=== PATIENT | male | born 1960 | race Caucasian/White ===

== ENCOUNTER 2017-09-11 16:43 | Outpatient (CLI) | payer OTHER ==
--- NOTE | 2017-09-12 00:22 | MRI Report ---
EXAM: MRI LUMBAR SPINE WITHOUT CONTRAST EXAM DATE: 09/11/2017 05:26 PM. CLINICAL HISTORY: Lumbago with right-sided sciatica. COMPARISON: None. TECHNIQUE: Multiplanar, multisequence T1-weighted and fluid-sensitive sequences of the lumbar spine f rom T11 to S1 without contrast. Other: None. FINDINGS: Spinal Cord: The conus terminates at L1-L2. The conus medullaris is unremarkable. Alignment: Retrolisthesis at L4-L5 measures 4 mm and at L5-S1 measures 5 mm. Bone Marrow: Five [id number] lumbar vertebral bodies are assumed. Moderate type I Modic endplate changes are present at L4-L5. Disk Levels/Facets: T11-T12: Unremarkable on sagittal images. T12-l1: Unremarkable on sagittal images. L1-L2: There is mild left foraminal narrowing due to facet arthropathy. The spinal canal and right fo ramen are patent. L2-L3: There is mild left foraminal narrowing due to facet arthropathy and a left foraminal protrusio n. The spinal canal and right foramen are patent. L3-L4: A disk bulge with ligamentum flavum infolding and facet arthropathy result in mild spinal nikky l stenosis. There is mild bilateral foraminal narrowing. L4-L5: A disk bulge is present with a superimposed central and right paracentral mildly inferiorly mi grating extrusion. Additionally, there is a sequestered disk fragment in the right lateral recess imp inging the descending right L5 nerve root and causing moderate spinal canal stenosis. Facet arthropat hy is also present resulting in severe right and moderate left foraminal narrowing. L5-S1: A disk bulge is present with a superimposed central protrusion. There is bilateral facet arthr opathy. This results in moderate bilateral foraminal narrowing without spinal canal stenosis. Musculature: There is mild diffuse fatty atrophy of the posterior paraspinal muscles without intramus cular edema. Other: The partially visualized retroperitoneum is unremarkable. IMPRESSION: 1. Sequestered disk fragment in the lateral recess on the right at L4-L5 impinges the descending righ t L5 nerve root. 2. Moderate multilevel degenerative changes without high-grade spinal canal stenosis at any other lum bar level. 3. Moderate type I Modic endplate changes are present at L4-L5. Comment: The following findings are so common in adults without low back pain that while we report th eir presence, they must be interpreted with caution and in the context of the clinical situation. (Re osiris Vallejo et al, Spine 2001) Prevalence of findings in patients without low back pain: Disk degeneration (any evidence): 92% Disk desiccation/T2 signal loss: 83% Disk height loss: 56% Disk bulge: 64% Disk protrusion: 32% Annular tear/high intensity zone: 38% [facility] Referring Provider Line: [phone] SITE ID: [id number]
== END 2017-09-11 16:44 | disposition home or self-care (01) ==
LOC: DI 16:43
PROVIDERS: ATTEND Physician Assistant Medical
DX: M51.26 Other intervertebral disc displacement, lumbar region (principal); M51.27 Other intervertebral disc displacement, lumbosacral region; M47.896 Other spondylosis, lumbar region; M51.36 Other intervertebral disc degeneration, lumbar region; M51.37 Other intervertebral disc degeneration, lumbosacral region; M43.16 Spondylolisthesis, lumbar region
CPT/HCPCS: 72148

== ENCOUNTER 2018-07-12 07:31 | Outpatient (CLI) | payer OTHER ==
[2018-07-12] MEDS ORDERED: GADOBUTROL 10 MMOL/10 ML VIAL ONE (08:06)
[2018-07-12] MEDS ORDERED: GADOBUTROL 10 MMOL/10 ML VIAL IVP ONE (08:46)
--- NOTE | 2018-07-12 09:33 | MRI Report ---
Reason: HERNIATION OF LUMBAR INTERVERTEBRAL DISC W/SCIATIC Procedure Date: 07/12/2018 Accession Number: [id number] / [id number] Procedure: MRI - Lumbar Spine W/WO CPT Code: FULL RESULT: EXAM: MRI LUMBAR SPINE WITHOUT AND WITH CONTRAST EXAM DATE: 07/12/2018 09:01 AM. CLINICAL HISTORY: Low back pain. Right leg pain and numbness. History of disk herniation and lumbar spine surgery for diskectomy. COMPARISONS: MRI lumbar spine without contrast 09/11/2017. TECHNIQUE: Multiplanar, multisequence T1-weighted and fluid-sensitive sequences of the lumbar spine from T12 to S1 before and after administration of intravenous contrast. Other: None. IV contrast: Without and with 10 mL Gadavist. FINDINGS: Neurologic Structures: The conus terminates at L1-L2. The conus medullaris and cauda equina are unremarkable. Alignment: No change of alignment. Minimal retrolisthesis of L3 on L4 and L4 on L5. Bone Marrow: Five [id number] lumbar vertebral bodies are assumed. Degenerative endplate signal changes again notable at L4-L5 and L5-S1 levels. Disk Levels/Facets: T12-L1: Unremarkable. L1-L2: Stable degenerative changes including anterior spurring but no disk extrusion or stenosis. L2-L3: Stable mild degenerative changes without significant or progressive stenosis. L3-L4: Stable chronic degenerative changes. Marginal spurring, circumferential disk bulge and disk space dehydration and narrowing. Mild facet arthropathy. Asymmetric left intraforaminal and far left lateral disk protrusion with osteophyte. Patent right foramen. Mild central stenosis without cauda equina impingement. Stable moderate left foraminal stenosis. L4-L5: Interval right hemilaminotomy and resection of large inferiorly migrating disk extrusion on the right. Again seen are findings of prominent degenerative disk disease with marginal spurring and prominent circumferential disk bulge with extension laterally into both neural foramina and extraforaminal zones, especially on the right side. No evidence for residual or recurrent extruded disk. Central stenosis is now mild and has improved. Stable mild to moderate left lateral recess stenosis. The right lateral recess is now patent after surgery and diskectomy. Heterogeneous T2 hyperintensity and enhancement of the posterior disk annulus is likely a combination of degenerative and postoperative changes. Similar findings of foraminal stenosis, moderate on the left and potentially severe on the right contributed to by prominent right intraforaminal disk protrusion with osteophyte as well as posterior element hypertrophic degenerative changes with potential for right L4 nerve root compression. L5-S1: Stable prominent chronic degenerative changes. The central canal remains patent. Stable prominent broad-based bulge with extension laterally into both foramina associated with moderate to marked bilateral foraminal stenosis similar to prior. Spinal Canal: No enhancing masses within the spinal canal. No epidural abscess. Musculature: Mild to moderate diffuse fatty atrophy. Other: None. IMPRESSION: 1. There are now findings of right L4-L5 hemilaminotomy and diskectomy. No residual or recurrent extruded disk. The central canal shows reduced stenosis and the right lateral recess is now patent. 2. Persistent findings of prominent L4-L5 degenerative disk disease where there is a broad-based bulge with osteophyte and additional asymmetric right greater than left intraforaminal and far lateral protrusion. 3. Persistent findings of severe-appearing right foraminal stenosis at L4-L5. There is also residual left lateral recess and left foraminal stenosis at this level also. 4. Multilevel lumbar degenerative changes otherwise appear stable as described above. Comment: The following findings are so common in adults without low back pain that while we report their presence, they must be interpreted with caution and in the context of the clinical situation. (Reference Jeffk et al, Spine 2001) Prevalence of findings in patients without low back pain: Disk degeneration (any evidence): 92% Disk desiccation/T2 signal loss: 83% Disk height loss: 56% Disk bulge: 64% Disk protrusion: 32% Annular tear/high intensity zone: 38% [facility]
== END 2018-07-12 07:32 | disposition home or self-care (01) ==
LOC: DI 07:31
PROVIDERS: ATTEND Physician Assistant Medical
DX: M51.36 Other intervertebral disc degeneration, lumbar region (principal); M48.061 Spinal stenosis, lumbar region without neurogenic claudication; M47.9 Spondylosis, unspecified; M51.37 Other intervertebral disc degeneration, lumbosacral region; M48.07 Spinal stenosis, lumbosacral region
CPT/HCPCS: 72158; A9585

== ENCOUNTER 2020-12-09 07:42 | Outpatient (CLI) | payer OTHER ==
[2020-12-09] MEDS ORDERED: GADOBUTROL 10 MMOL/10 ML VIAL ONE (07:52)
--- NOTE | 2020-12-09 10:18 | MRI Report ---
PROCEDURE: Lumbar Spine W/WO INDICATIONS: SPINAL STENOSIS CONTRAST: IV CONTRAST: Gadavist ml: 8 TECHNIQUE: Noncontrast sagittal T1 spin echo and T2 fast spin echo, sagittal STIR, axial T1 and T2 fast spin ech o through the lumbar spine. In cases with scoliosis, additional coronal T2 fast spin echo may be per formed. After the administration of contrast, sagittal and axial T1 spin echo with fat saturation th rough the lumbar spine. COMPARISON: MRI dated 07/12/2018 FINDINGS: Image quality: Excellent. Alignment and curvature: No plain films are available for comparison. Thus, for numbering purposes, 5 lumbar type vertebral bodies will be presumed for the current report. This should be confirmed with plain film correlation prior to any lumbar spinal intervention. Marrow: Marrow is of normal overall signal. No acute vertebral body compression fractures. No susp icious marrow enhancement. Spinal cord: Conus medullaris terminates at the upper L2 level. Visualized spinal cord demonstrates normal signal, without suspicious enhancement. Paraspinous soft tissues: No paravertebral masses or abnormal enhancement. T12-L1: Moderate disc height loss. Mild facet and ligament flavum hypertrophy. No significant canal, nor foraminal stenosis. No significant change. L1-L2: Mild disc desiccation and diffuse disc bulge. Mild facet and ligament flavum hypertrophy. M ild epidural lipomatosis. Mild canal stenosis. No foraminal stenosis. No significant change. L2-L3: Mild disc desiccation and diffuse disc bulge. Mild facet and ligament flavum hypertrophy. M ild epidural lipomatosis. Mild canal stenosis. Mild bilateral foraminal stenosis. No significant lynch ge. L3-L4: Mild disc height loss and desiccation. Mild diffuse disc bulge with superimposed broad-based left far lateral protrusion. Mild facet and ligament flavum hypertrophy. Mild epidural lipomatosis. Mild canal stenosis. Moderate left and mild right foraminal stenosis. No significant change. L4-L5: Right hemilaminotomy. Moderate disc height loss and desiccation. Moderate diffuse disc bulge with superimposed left paracentral protrusion. Mild facet and ligament flavum hypertrophy. Mild epid ural lipomatosis. Mild canal stenosis. Severe right and moderate left foraminal stenosis. Right L4 ne rve root compression. No significant change. L5-S1: Moderate disc height loss and desiccation. Moderate diffuse disc bulge. Mild facet and ligam ent flavum hypertrophy. Mild canal stenosis. Moderate bilateral foraminal stenosis. No significant c hange. IMPRESSION: 1. Multilevel degenerative disc and facet disease, in addition to epidural lipomatosis and ligamentum flavum hypertrophy. 2. Mild multilevel canal stenoses. 3. Multilevel foraminal stenoses, worst at L4-L5 where there is associated intraforaminal nerve root compression. Recurrent correlation with clinical symptoms to ascertain relevance of this finding. 4. Postsurgical sequelae. Reviewed by: Lora Berg MD on 12/09/2020 10:17 AM PDT Approved by: Lora Berg MD on 12/09/2020 10:17 AM PDT Station ID: [id number]
[2020-12-09] MEDS ORDERED: GADOBUTROL 10 MMOL/10 ML VIAL IVP ONE (15:13)
== END 2020-12-09 07:43 | disposition home or self-care (01) ==
LOC: DI 07:42
PROVIDERS: ATTEND Pain Medicine Pain Medicine
DX: M48.061 Spinal stenosis, lumbar region without neurogenic claudication (principal); M51.37 Other intervertebral disc degeneration, lumbosacral region
CPT/HCPCS: 72158; A9585